=== PATIENT | female | born 1995 | race African-American/Black ===

== ENCOUNTER → 2019-11-29 | Emergency (ER) | payer OTHER ==
[~2019-11-29] MED LIST: CARA1TAB6 PO; CYCLOBENZAPRINE 10MG TABLET ONE; KETOROLAC 30 MG/ML 1ML VIAL ONE; KETOROLAC TROMETHAMINE 10 MG TAB ONE; LEXA1TAB PO; METOCLOPRAMIDE INJ 10MG/2ML VIAL (J2765 PER 1) ONE; OMEP40CA97 PO; VIST25CA PO; diphenhydrAMINE 50MG/ML VIAL (J1200) ONE
== END | disposition home or self-care (01) ==
LOC: M ED 22:45
DX: G43.909 Migraine, unspecified, not intractable, without status migrainosus (principal); Z87.891 Personal history of nicotine dependence; Z79.899 Other long term (current) drug therapy
CPT/HCPCS: 96361; 96374; 96375; 99283; J1200; J1885; J2765

== ENCOUNTER 2019-11-30 11:00 | Emergency (ER) | payer OTHER ==
[2019-11-30] MEDS ORDERED: diphenhydrAMINE 50MG/ML VIAL (J1200) ONE (12:54)
[2019-11-30] MEDS ORDERED: diphenhydrAMINE 50MG/ML VIAL (J1200) As Ordered ONE (12:54)
[2019-11-30] MEDS ORDERED: ACETAMINOPHEN 500 MG TAB As Ordered ONE (12:55)
[2019-11-30] MEDS ORDERED: ACETAMINOPHEN 500 MG TAB ONE (12:55)
[2019-11-30] MEDS ORDERED: KETOROLAC 30 MG/ML 1ML VIAL As Ordered ONE (13:34)
[2019-11-30] MEDS ORDERED: METOCLOPRAMIDE INJ 10MG/2ML VIAL (J2765 PER 1) As Ordered ONE (13:34)
[2019-11-30] MEDS ORDERED: METOCLOPRAMIDE INJ 10MG/2ML VIAL (J2765 PER 1) ONE (13:34)
[2019-11-30] MEDS ORDERED: KETOROLAC 30 MG/ML 1ML VIAL ONE (13:34)
[2019-11-30] MEDS ORDERED: methylPREDNISolone 125MG 2ML VIAL As Ordered ONE (15:01)
[2019-11-30] MEDS ORDERED: methylPREDNISolone 125MG 2ML VIAL ONE (15:01)
[2020-01-15 01:57] LABS: BASO % 0.5 % (0.0-1.0); EOS # 0.7 10^3/uL (0.0-0.5); EOS % 8.3 % (0.0-3.0); HEMATOCRIT 48.2 % (36.0-47.0); HEMOGLOBIN 16.5 g/dl (12.0-15.5); LYMPH # 3.2 10^3/uL (1.5-5.0); LYMPH % 39.2 % (24.0-44.0); MEAN CORPUSCULAR HGB CONC 34.2 g/dl (32.0-36.5); MEAN CORPUSCULAR VOLUME 93.4 fl (80.0-96.0); MONO # 0.3 10^3/uL (0.0-0.8); MONO % 3.9 % (0.0-5.0); NEUTROPHILS # 3.8 10^3/uL (1.5-8.5); NEUTROPHILS % 47.7 % (36.0-66.0); PLATELET COUNT, AUTOMATED 411 10^3/uL (150-450); RED BLOOD COUNT 5.16 10^6/uL (4.00-5.40)
[2020-01-15 02:09] LABS: INR 0.84; PROTHROMBIN TIME 11.7 SECONDS (12.5-14.3)
[2020-01-15 02:10] LABS: PARTIAL THROMBOPLASTIN TIME 27.6 SECONDS (24.2-38.5)
== END 2019-11-30 17:10 | disposition home or self-care (01) ==
LOC: M ED 11:00
DX: G44.89 Other headache syndrome (principal); F41.9 Anxiety disorder, unspecified; Z79.899 Other long term (current) drug therapy
CPT/HCPCS: 70450; 72125; 80048; 80076; 81001; 84703; 85025; 85610; 85730; 96374; 96375; 99283; J1200; J1885; J2765; J2930

== ENCOUNTER → 2020-01-22 | Outpatient (CLI) | payer OTHER ==
[~2020-01-22] MED LIST changes: -CYCLOBENZAPRINE 10MG TABLET ONE; -KETOROLAC 30 MG/ML 1ML VIAL ONE; -KETOROLAC TROMETHAMINE 10 MG TAB ONE; -METOCLOPRAMIDE INJ 10MG/2ML VIAL (J2765 PER 1) ONE; -diphenhydrAMINE 50MG/ML VIAL (J1200) ONE
--- NOTE | 2020-01-22 14:28 | REPVR ---
PROCEDURE INFORMATION: Exam: US Abdomen, Limited; Right Upper Quadrant Exam date and time: 01/22/2020 2:21 PM Age: 24 years old Clinical indication: Abdominal pain; Additional info: Ruq abd pain, right upper quadrant pain TECHNIQUE: Imaging protocol: US abdomen. Real time ultrasound with image documentation. Limited exam focused on the right upper quadrant. COMPARISON: No relevant prior studies available. FINDINGS: Liver: The liver is homogeneous in echotexture. No demonstrated mass or intrahepatic biliary ductal dilatation. Gallbladder: The gallbladder is without demonstrated stones, sludge or wall thickening, and there is no pericholecystic fluid. Sonographic Eng sign is reportedly negative. Common bile duct: The common bile duct is normal in size for a patient of this age at 2.9 mm. Pancreas: Visualized portions of the pancreas, not fully including the tail, are without demonstrated abnormality. Right kidney: The right kidney measures 11.0 x 4.3 x 4.3 cm. Normal appearing echotexture. There is no hydronephrosis or demonstrated renal stone, cyst or mass. Inferior vena cava: The IVC is present. IMPRESSION: No significant abnormality. Electronically signed by: Bert Starr On 01/22/2020 14:28:39 PM
[2020-01-22 15:29] LABS: BASO # 0.1 10^3/uL (0.0-0.2); BASO % 0.8 % (0.0-1.0); EOS # 0.5 10^3/uL (0.0-0.5); EOS % 5.7 % (0.0-3.0); HEMATOCRIT 42.3 % (36.0-47.0); HEMOGLOBIN 13.9 g/dl (12.0-15.5); LYMPH # 3.3 10^3/uL (1.5-5.0); LYMPH % 39.1 % (24.0-44.0); MEAN CORPUSCULAR HEMOGLOBIN 31.1 pg (27.0-33.0); MEAN CORPUSCULAR HGB CONC 32.9 g/dl (32.0-36.5); MEAN CORPUSCULAR VOLUME 94.6 fl (80.0-96.0); MONO # 0.4 10^3/uL (0.0-0.8); MONO % 5.1 % (0.0-5.0); NEUTROPHILS # 4.1 10^3/uL (1.5-8.5); NEUTROPHILS % 49.1 % (36.0-66.0); PLATELET COUNT, AUTOMATED 401 10^3/uL (150-450); RED BLOOD COUNT 4.47 10^6/uL (4.00-5.40); WHITE BLOOD COUNT 8.4 10^3/uL (4.0-10.0)
[2020-01-22 16:02] LABS: ALT/SGPT 19 U/L (12-78); BILIRUBIN,TOTAL 1.6 MG/DL (0.2-1.0); BLOOD UREA NITROGEN 13 MG/DL (7-18); CALCIUM LEVEL 9.1 MG/DL (8.5-10.1); CARBON DIOXIDE LEVEL 27 MEQ/L (21-32); CHLORIDE LEVEL 105 MEQ/L (98-107); CREATININE FOR GFR 0.66 MG/DL (0.55-1.30); GLOMERULAR FILTRATION RATE > 60.0 (>60); GLUCOSE, FASTING 77 MG/DL (70-100); LIPASE 118 U/L (73-393); POTASSIUM SERUM 4.9 MEQ/L (3.5-5.1); SODIUM LEVEL 136 MEQ/L (136-145); TOTAL PROTEIN 7.3 GM/DL (6.4-8.2)
== END ==
LOC: M LAB 13:21
PROVIDERS: ATTEND Physician Assistant
DX: R10.11 Right upper quadrant pain (principal)

== ENCOUNTER → 2020-01-31 | Outpatient (REF) | payer OTHER | LOC: M LAB REF 12:18 | PROVIDERS: ATTEND Physician Assistant | DX: R19.7 Diarrhea, unspecified (principal) ==

== ENCOUNTER 2020-02-10 10:42 | Emergency (ER) | payer OTHER ==
[~2020-02-10] VITALS: Ht 149.9 cm; Wt 80.4 kg
[2020-02-10] MEDS ORDERED: VIST25CA PO (10:53)
[2020-02-10] MEDS ORDERED: LEXA1TAB PO (10:53)
[2020-02-10] MEDS ORDERED: NS 500 ML IV ONE (11:30)
[2020-02-10] MEDS ORDERED: METOCLOPRAMIDE INJ 10MG/2ML VIAL (J2765 PER 1) IV ONE (11:30)
[2020-02-10] MEDS ORDERED: GI COCKTAIL 50ML BTL(HYOSCYAMINE/MAALOX/LIDOCAINE VISCOUS)(1:3:1) PO ONE (11:30)
[2020-02-10] MEDS ORDERED: ISOVUE-370 76% 100ML VIAL As Ordered ONE (12:28)
--- NOTE | 2020-02-10 12:28 | REP ---
INDICATION: RUQ abd pain COMPARISON: None. TECHNIQUE: Real time bates scale ultrasound examination using curved array transducer. FINDINGS: Liver is normal in contour, size, and echogenicity without focal hepatic lesions identified. Pancreas is incompletely evaluated due to interposed bowel gas. The gallbladder is normal and without gallstones, wall thickening, or pericholecystic fluid. No biliary ductal dilatation is appreciated and the common bile duct measures 4.0 mm diameter. Right kidney is normal in reniform shape without hydronephrosis and measures 10.7 x 5.4 x 4.3 cm. No ascites in the visualized right upper quadrant. IMPRESSION: Normal limited right upper quadrant ultrasound <Electronically signed by Lei Little > 02/10/20 [id number]
[2020-02-10 12:42] LABS: ALBUMIN 3.6 GM/DL (3.2-5.2); BILIRUBIN,DIRECT 0.2 MG/DL (0.0-0.2); TOTAL PROTEIN 7.5 GM/DL (6.4-8.2)
--- NOTE | 2020-02-10 12:51 | REP ---
INDICATION: CHEST TIGHTNESS COMPARISON: None. TECHNIQUE: Portable AP view of the chest FINDINGS: The mediastinum and cardiac silhouette are stable and within normal limits for portable technique. The lung oliva are clear without acute consolidation, effusion, or pneumothorax. Skeletal structures are intact. IMPRESSION: No acute cardiopulmonary process appreciated. <Electronically signed by Lei Little > 02/10/20 [id number]
--- NOTE | 2020-02-10 13:07 | REP ---
INDICATION: chest tightness, RUQ abd pain COMPARISON: None. TECHNIQUE: Axial contrast enhanced images from the thoracic inlet to the upper abdomen using pulmonary embolus technique with multiplanar re-formations. 100 ml Isovue 370 intravenous contrast material administered without complication followed by CT of the abdomen and pelvis. This CT examination was performed using the following dose reduction techniques: Automated exposure control, adjustment of mA and/or kv according to the patient's size, and use of iterative reconstruction technique. FINDINGS: Satisfactory enhancement of the pulmonary vasculature is achieved and no filling defects are identified to suggest pulmonary embolus. Thoracic aorta is normal and without aneurysm or dissection. Heart and pericardium are normal. The bilateral lung oliva are well aerated and clear without consolidation pleural effusion or pneumothorax. Tracheobronchial tree is patent. No nodule or mass lesion is identified. No adenopathy noted. Surrounding musculoskeletal structures intact IMPRESSION: Normal pulmonary vasculature and normal thoracic aorta. No acute mediastinal or pleuroparenchymal process. <Electronically signed by Lei Little > 02/10/20 [id number]
--- NOTE | 2020-02-10 13:10 | REP ---
INDICATION: epigastric, RUQ abd pain. COMPARISON: None TECHNIQUE: Axial contrast-enhanced images from the lung bases to the pubic symphysis using 100 cc Isovue 370 intravenous contrast material with coronal and sagittal reformations. This CT examination was performed using the following dose reduction techniques: Automated exposure control, adjustment of mA and/or kv according to the patient's size, and the use of iterative reconstruction technique. FINDINGS: Liver, spleen, pancreas, gallbladder, bilateral adrenal glands and kidneys are normal. The enteric system including stomach, small, and large bowel appears normal. No evidence for obstruction or acute inflammatory process. Normal terminal ileum and appendix are identified in the right lower quadrant. Pelvis demonstrates normal bladder and age-appropriate prostate/seminal vesicles. No ascites. No free air. No intraperitoneal or retroperitoneal adenopathy. Abdominal aorta and vasculature appear normal. Musculoskeletal structures are intact and without acute osseous abnormality. IMPRESSION: No acute abdominopelvic pathology appreciated. Normal appearance of the aorta and vasculature. <Electronically signed by Lei Little > 02/10/20 [id number]
[2020-02-10] MEDS ORDERED: MAALOX 30 ML SUSP *UDC PO ONE (13:15)
[2020-02-10] MEDS ORDERED: HYOSCYAMINE SULFATE 0.125 MG SUBL TABLET PO ONE (13:15)
[2020-02-10 14:13] LABS: BASO # 0.1 10^3/uL (0.0-0.2); BASO % 0.7 % (0.0-1.0); EOS # 0.6 10^3/uL (0.0-0.5); EOS % 7.3 % (0.0-3.0); HEMATOCRIT 41.4 % (36.0-47.0); HEMOGLOBIN 13.9 g/dl (12.0-15.5); LYMPH % 37.2 % (24.0-44.0); MEAN CORPUSCULAR HEMOGLOBIN 31.4 pg (27.0-33.0); MEAN CORPUSCULAR HGB CONC 33.6 g/dl (32.0-36.5); MEAN CORPUSCULAR VOLUME 93.5 fl (80.0-96.0); MONO # 0.4 10^3/uL (0.0-0.8); MONO % 5.5 % (0.0-5.0); NEUTROPHILS # 3.9 10^3/uL (1.5-8.5); NEUTROPHILS % 48.9 % (36.0-66.0); PLATELET COUNT, AUTOMATED 413 10^3/uL (150-450); RED BLOOD COUNT 4.43 10^6/uL (4.00-5.40)
[2020-02-10] MEDS ORDERED: PANTOPRAZOLE 40MG VIAL (C9113 PER 1) IV ONE (14:15)
[2020-02-10] MEDS ORDERED: CARA1TAB6 PO (14:20)
[2020-02-10] MEDS ORDERED: OMEP40CA97 PO (14:20)
[2020-02-10 14:32] VITALS: BP 122/69
--- NOTE | 2020-02-10 16:16 | ECGEPIP ---
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
== END 2020-02-10 15:02 | disposition home or self-care (01) ==
LOC: M ED 10:42
DX: K29.90 Gastroduodenitis, unspecified, without bleeding (principal); K29.70 Gastritis, unspecified, without bleeding; F41.9 Anxiety disorder, unspecified; Z79.899 Other long term (current) drug therapy
CPT/HCPCS: 71045; 71275; 74177; 76705; 80047; 80076; 81001; 83605; 83690; 84484; 84702; 85025; 93005; 93041; 96361; 96374; 96375; 99284; C9113; J2765; Q9967

== ENCOUNTER 2020-04-27 09:49 | Emergency (ER) | payer OTHER ==
[~2020-04-27] VITALS: Ht 167.6 cm; Wt 68.2 kg
[2020-04-27 10:35] LABS: BASO # 0.1 10^3/uL (0.0-0.2); BASO % 0.4 % (0.0-1.0); EOS # 0.5 10^3/uL (0.0-0.5); HEMATOCRIT 45.2 % (36.0-47.0); HEMOGLOBIN 15.4 g/dl (12.0-15.5); LYMPH % 11.4 % (24.0-44.0); MEAN CORPUSCULAR HEMOGLOBIN 31.4 pg (27.0-33.0); MEAN CORPUSCULAR HGB CONC 34.1 g/dl (32.0-36.5); MEAN CORPUSCULAR VOLUME 92.1 fl (80.0-96.0); MONO # 0.9 10^3/uL (0.0-0.8); MONO % 5.4 % (0.0-5.0); NEUTROPHILS % 79.4 % (36.0-66.0); PLATELET COUNT, AUTOMATED 421 10^3/uL (150-450); RED BLOOD COUNT 4.91 10^6/uL (4.00-5.40); WHITE BLOOD COUNT 17.6 10^3/uL (4.0-10.0)
[2020-04-27 11:07] LABS: ALBUMIN 4.3 GM/DL (3.2-5.2); ALT/SGPT 21 U/L (12-78); BILIRUBIN,DIRECT 0.3 MG/DL (0.0-0.2); BILIRUBIN,TOTAL 1.6 MG/DL (0.2-1.0); BLOOD UREA NITROGEN 20 MG/DL (7-18); CALCIUM LEVEL 9.4 MG/DL (8.5-10.1); CARBON DIOXIDE LEVEL 23 MEQ/L (21-32); CHLORIDE LEVEL 108 MEQ/L (98-107); CREATININE FOR GFR 0.71 MG/DL (0.55-1.30); GLOMERULAR FILTRATION RATE > 60.0 (>60); GLUCOSE, FASTING 86 MG/DL (70-100); HCG, SERUM QUALITATIVE NEGATIVE (NEGATIVE); LIPASE 123 U/L (73-393); POTASSIUM SERUM 4.3 MEQ/L (3.5-5.1); SODIUM LEVEL 137 MEQ/L (136-145); TOTAL PROTEIN 7.7 GM/DL (6.4-8.2)
[2020-04-27] MEDS ORDERED: NS 1,000 ML IV ONE (11:15)
[2020-04-27] MEDS ORDERED: KETOROLAC 30 MG/ML 1ML VIAL IV ONE (11:15)
[2020-04-27] MEDS ORDERED: ONDANSETRON 4MG/2ML VIAL IV ONE (11:15)
--- NOTE | 2020-04-27 11:34 | REP ---
INDICATION: Abdominal Pain COMPARISON: None. TECHNIQUE: Upright view of the chest with supine and upright views of the abdomen and pelvis. FINDINGS: Frontal upright view of the chest demonstrates no acute cardiopulmonary process or free air below the diaphragm to suspect pneumoperitoneum. Supine and upright views of the abdomen and pelvis demonstrate nonspecific bowel gas pattern without obstruction or perforation. No organomegaly. No abnormal calcifications. Skeletal structures normal for age. IMPRESSION: Nonspecific bowel gas pattern. <Electronically signed by Lei Little > 04/27/20 [id number]
--- NOTE | 2020-04-27 11:34 | REP ---
INDICATION: RUQ pain, n/v/d COMPARISON: 02/10/2020 TECHNIQUE: Real time bates scale ultrasound examination using curved array transducer. FINDINGS: Liver and pancreas are normal in contour, size, and echogenicity without focal hepatic or pancreatic lesions identified. The gallbladder is normal and without gallstones, wall thickening, or pericholecystic fluid. No biliary ductal dilatation is appreciated and the common bile duct measures 4.2 mm diameter. Right kidney is normal in reniform shape without hydronephrosis and measures 11.0 x 5.6 x 3.3 cm. No ascites in the visualized right upper quadrant. IMPRESSION: Normal right upper quadrant and gallbladder ultrasound. <Electronically signed by Lei Little > 04/27/20 1302
[2020-04-27] MEDS ORDERED: ISOVUE-370 76% 100ML VIAL As Ordered ONE (12:22)
[2020-04-27 12:24] LABS: CK-MB VALUE MASS < 1.0 NG/ML (<3.6); CPK CREATINE PHOSPHOKINASE 183 U/L (26-192); MB/CK RELATIVE INDEX 0.55 (< OR =4); TROPONIN I < 0.02 NG/ML (< 0.10)
--- NOTE | 2020-04-27 13:16 | REP ---
INDICATION: n/v/d, RUQ pain. COMPARISON: 02/10/2020 TECHNIQUE: Axial contrast-enhanced images from the lung bases to the pubic symphysis using 100 cc Isovue 370 intravenous contrast material. Coronal and sagittal reformations obtained. This CT examination was performed using the following dose reduction techniques: Automated exposure control, adjustment of mA and/or kv according to the patient's size, and the use of iterative reconstruction technique. FINDINGS: Liver, spleen, pancreas, gallbladder, bilateral adrenal glands and kidneys are normal. The enteric system including stomach, small, and large bowel appears normal. No evidence for obstruction or acute inflammatory process. Normal terminal ileum and appendix are identified in the right lower quadrant. Pelvis demonstrates normal bladder and age-appropriate uterus/left adnexa with involuting rim enhancing right ovarian cyst and small amount of free fluid in the pelvis raising the possibility of ruptured follicle. No significant ascites. No free air. No intraperitoneal or retroperitoneal adenopathy. Abdominal aorta and vasculature appear normal. Musculoskeletal structures are intact and without acute osseous abnormality. IMPRESSION: 1. No acute abdominopelvic pathology appreciated. 2. Involuting rim enhancing right ovarian cyst and small amount of free fluid in the pelvis suggesting ruptured follicle and related to menstrual cycle. <Electronically signed by Lei Little > 04/27/20 1315
[2020-04-27 13:58] LABS: AMPHETAMINES LEVEL URINE NEGATIVE (NEGATIVE); BARBITURATES URINE NEGATIVE (NEGATIVE); BENZODIAZEPINES URINE NEGATIVE (NEGATIVE); CANNABINOIDS URINE NEGATIVE (NEGATIVE); COCAINE METABOLITE URINE NEGATIVE (NEGATIVE); METHADONE URINE NEGATIVE (NEGATIVE); OPIATES URINE NEGATIVE (NEGATIVE); PHENCYCLIDINE URINE NEGATIVE (NEGATIVE)
[2020-04-27] MEDS ORDERED: HEPARIN DRIP 25,000 UNITS in IV 1 EA IV SCH (14:07)
[2020-04-27 14:12] VITALS: BP 126/82
[2020-04-27] MEDS ORDERED: HEPARIN SOD (PORCINE) 5000UNITS/ML 1ML VIAL/SYRINGE IV ONE (14:15)
[2020-04-27] MEDS ORDERED: CARA1TAB6 PO (14:22)
[2020-04-27] MEDS ORDERED: OMEP40CA97 PO (14:22)
--- NOTE | 2020-04-27 18:14 | ECGEPIP ---
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
== END 2020-04-27 14:52 | disposition home or self-care (01) ==
LOC: M ED 09:49
DX: K29.70 Gastritis, unspecified, without bleeding (principal); N83.201 Unspecified ovarian cyst, right side; E80.6 Other disorders of bilirubin metabolism; D72.829 Elevated white blood cell count, unspecified; R10.9 Unspecified abdominal pain; R11.2 Nausea with vomiting, unspecified; R19.7 Diarrhea, unspecified; F41.9 Anxiety disorder, unspecified; F32.9 Major depressive disorder, single episode, unspecified; F43.10 Post-traumatic stress disorder, unspecified; Z87.891 Personal history of nicotine dependence; Z79.899 Other long term (current) drug therapy
CPT/HCPCS: 74021; 74177; 76705; 80048; 80076; 80307; 81001; 82550; 82553; 83690; 84484; 84703; 85025; 93005; 96361; 96374; 96375; 99284; J1885; J2405; Q9967

== ENCOUNTER 2022-02-11 19:41 | Inpatient (IN) | payer OTHER ==
[~2022-02-11] VITALS: Ht 149.9 cm; Wt 83.0 kg
[~2022-02-11 19:41] MED LIST changes: +OMEP40CA4 PO; -OMEP40CA97 PO
[2022-02-11] MEDS ORDERED: CHARCOAL ACTIVATED LIQUID 25 GM/120 ML BTL PO ONE (19:55)
[2022-02-11] MEDS: NS 1,000 ML IV SCH (19:55)
[2022-02-11 20:17] LABS: BASO # 0.1 10^3/uL (0.0-0.2); BASO % 0.7 % (0.0-1.0); EOS # 0.5 10^3/uL (0.0-0.5); HEMATOCRIT 44.1 % (36.0-47.0); HEMOGLOBIN 14.9 g/dl (12.0-15.5); LYMPH # 4.3 10^3/uL (1.5-5.0); LYMPH % 41.1 % (24.0-44.0); MEAN CORPUSCULAR HEMOGLOBIN 30.7 pg (27.0-33.0); MEAN CORPUSCULAR HGB CONC 33.8 g/dl (32.0-36.5); MEAN CORPUSCULAR VOLUME 90.7 fl (80.0-96.0); MONO # 0.6 10^3/uL (0.0-0.8); NEUTROPHILS # 4.9 10^3/uL (1.5-8.5); NEUTROPHILS % 46.9 % (36.0-66.0); PLATELET COUNT, AUTOMATED 508 10^3/uL (150-450); RED BLOOD COUNT 4.86 10^6/uL (4.00-5.40); WHITE BLOOD COUNT 10.4 10^3/uL (4.0-10.0)
[2022-02-11 20:43] LABS: HCG, SERUM QUALITATIVE NEGATIVE (NEGATIVE)
[2022-02-11 21:01] LABS: ACETAMINOPHEN LEVEL < 2.0 UG/ML (10.0-30.0); ALBUMIN 4.6 GM/DL (3.2-5.2); ALT/SGPT 18 U/L (12-78); BILIRUBIN,DIRECT 0.2 MG/DL (0.0-0.2); BILIRUBIN,TOTAL 1.1 MG/DL (0.2-1.0); BLOOD UREA NITROGEN 12 MG/DL (7-18); CALCIUM LEVEL 10.4 MG/DL (8.5-10.1); CARBON DIOXIDE LEVEL 26 MEQ/L (21-32); CHLORIDE LEVEL 105 MEQ/L (98-107); CREATININE FOR GFR 0.87 MG/DL (0.55-1.30); ETHYL ALCOHOL (ETHANOL) < 0.003 % (0.000-0.010); GLOMERULAR FILTRATION RATE > 60.0 (>60); GLUCOSE, FASTING 106 MG/DL (70-100); MAGNESIUM LEVEL 2.3 MG/DL (1.8-2.4); POTASSIUM SERUM 3.8 MEQ/L (3.5-5.1); SALICYLATE LEVEL < 1.7 MG/DL (5.0-30.0); SODIUM LEVEL 136 MEQ/L (136-145); TOTAL PROTEIN 8.4 GM/DL (6.4-8.2)
[2022-02-11 22:11] LABS: RSV AMPLIFICATION NEGATIVE (NEGATIVE)
[2022-02-12] MEDS ORDERED: LEXA1TAB PO (00:40)
[2022-02-12] MEDS ORDERED: HOME MED LIST COMPLETE! XX SCH (00:40)
[2022-02-12] MEDS: NS 1,000 ML IV SCH ×2 (02:35→09:14)
[2022-02-12 06:23] LABS: HEMATOCRIT 36.2 % (36.0-47.0); MEAN CORPUSCULAR HEMOGLOBIN 31.9 pg (27.0-33.0); MEAN CORPUSCULAR HGB CONC 35.1 g/dl (32.0-36.5); RED BLOOD COUNT 3.98 10^6/uL (4.00-5.40); WHITE BLOOD COUNT 8.6 10^3/uL (4.0-10.0)
[2022-02-12 07:02] LABS: HEMOGLOBIN 12.7 g/dl (12.0-15.5); PLATELET COUNT, AUTOMATED 390 10^3/uL (150-450)
[2022-02-12 07:12] LABS: ALBUMIN 3.2 GM/DL (3.2-5.2); ALT/SGPT 15 U/L (12-78); BILIRUBIN,TOTAL 1.1 MG/DL (0.2-1.0); BLOOD UREA NITROGEN 14 MG/DL (7-18); CALCIUM LEVEL 8.5 MG/DL (8.5-10.1); CARBON DIOXIDE LEVEL 24 MEQ/L (21-32); CHLORIDE LEVEL 110 MEQ/L (98-107); CREATININE FOR GFR 0.64 MG/DL (0.55-1.30); GLOMERULAR FILTRATION RATE > 60.0 (>60); GLUCOSE, FASTING 95 MG/DL (70-100); POTASSIUM SERUM 4.1 MEQ/L (3.5-5.1); SODIUM LEVEL 139 MEQ/L (136-145)
[2022-02-12] MEDS ORDERED: ENOXAPARIN 40MG/0.4ML SYRINGE (J1650 PER 10MG) SC SCH (09:00)
[2022-02-12 15:10] VITALS: BP 126/78
[2022-02-12 15:56] LABS: BLOOD UREA NITROGEN 11 MG/DL (7-18); CHLORIDE LEVEL 110 MEQ/L (98-107); CREATININE FOR GFR 0.73 MG/DL (0.55-1.30); GLOMERULAR FILTRATION RATE > 60.0 (>60); GLUCOSE, FASTING 85 MG/DL (70-100); POTASSIUM SERUM 4.4 MEQ/L (3.5-5.1); SODIUM LEVEL 140 MEQ/L (136-145)
[2022-02-12 15:57] LABS: ALBUMIN 3.8 GM/DL (3.2-5.2); ALT/SGPT 18 U/L (12-78); BILIRUBIN,TOTAL 1.6 MG/DL (0.2-1.0); CALCIUM LEVEL 8.8 MG/DL (8.5-10.1); CARBON DIOXIDE LEVEL 25 MEQ/L (21-32); MAGNESIUM LEVEL 2.1 MG/DL (1.8-2.4); TOTAL PROTEIN 6.9 GM/DL (6.4-8.2)
[2022-02-12] MEDS ORDERED: ACETAMINOPHEN TAB 650MG DOSE (2X325MG) PO ONE (17:05)
[2022-02-12 21:12] VITALS: BP 129/77
== END 2022-02-12 21:00 | DRG 918 ==
LOC: M ED 19:41 → M ED INP 22:13 → M MSPAV 02-12 15:07
PROVIDERS: ADMIT Family Medicine; ATTEND Internal Medicine
DX: T43.222A Poisoning by selective serotonin reuptake inhibitors, intentional self-harm, initial encounter (principal); F33.2 Major depressive disorder, recurrent severe without psychotic features; F41.9 Anxiety disorder, unspecified; K29.70 Gastritis, unspecified, without bleeding; G43.909 Migraine, unspecified, not intractable, without status migrainosus; F17.290 Nicotine dependence, other tobacco product, uncomplicated; Z79.899 Other long term (current) drug therapy; F43.23 Adjustment disorder with mixed anxiety and depressed mood

== ENCOUNTER 2022-02-12 17:39 | Inpatient (IN) | payer OTHER ==
[~2022-02-12] VITALS: Ht 149.9 cm; Wt 83.5 kg
[2022-02-12] MEDS ORDERED: LORazepam 0.5 MG TAB PO PRN (18:10)
[2022-02-12] MEDS ORDERED: MAALOX 30 ML SUSP *UDC PO PRN (18:10)
[2022-02-12] MEDS ORDERED: MOM 30ML SUSPENSION UDC PO PRN (18:10)
[2022-02-12] MEDS ORDERED: ACETAMINOPHEN TAB 650MG DOSE (2X325MG) PO PRN (18:10)
[2022-02-12] MEDS ORDERED: NICOTINE 21MG/24HR 1 EA TRANSDERMAL TD PRN (18:10)
[2022-02-12 21:12] VITALS: BP 116/73
[2022-02-12] MEDS: traZODone 50 MG TAB PO PRN (23:44)
[2022-02-13 06:26] VITALS: BP 132/64
[2022-02-13] MEDS: ESCITALOPRAM OXALATE 10 MG TAB (LEXAPRO) PO SCH (09:44)
[2022-02-13] MEDS ORDERED: HOME MED LIST COMPLETE! XX SCH (12:35)
[2022-02-13] MEDS: METAMUCIL (PSYLLIUM) PACKET PO PRN (13:26)
[2022-02-13 16:33] VITALS: BP 128/67
[2022-02-13] MEDS: PRAZOSIN 1 MG CAP PO SCH (20:46)
[2022-02-13] MEDS ORDERED: DIVALPROEX 500MG *ER* TAB PO SCH (21:00)
[2022-02-13] MEDS: traZODone 50 MG TAB PO PRN (22:51)
[2022-02-14 06:27] VITALS: BP 106/57
[2022-02-14] MEDS: ESCITALOPRAM OXALATE 10 MG TAB (LEXAPRO) PO SCH (08:30)
[2022-02-14] MEDS: VENLAFAXINE **XR** 75MG CAPSULE PO SCH (09:00)
[2022-02-14 16:14] VITALS: BP 107/68
[2022-02-14] MEDS: METAMUCIL (PSYLLIUM) PACKET PO PRN (17:37)
[2022-02-14] MEDS: PRAZOSIN 1 MG CAP PO SCH (20:10)
[2022-02-14] MEDS: DOCUSATE SODIUM 100MG CAPSULE PO SCH (20:10)
[2022-02-14] MEDS: traZODone 50 MG TAB PO PRN (20:10)
[2022-02-14] MEDS: lamoTRIgine 25MG TAB PO SCH (20:10)
[2022-02-15 06:30] VITALS: BP 123/60
[2022-02-15] MEDS: ESCITALOPRAM OXALATE 10 MG TAB (LEXAPRO) PO SCH (09:32)
[2022-02-15] MEDS: DOCUSATE SODIUM 100MG CAPSULE PO SCH ×2 (09:32→20:22)
[2022-02-15] MEDS: VENLAFAXINE **XR** 75MG CAPSULE PO SCH (09:32)
[2022-02-15 16:38] VITALS: BP 111/72
[2022-02-15] MEDS: lamoTRIgine 25MG TAB PO SCH (20:22)
[2022-02-15] MEDS: PRAZOSIN 1 MG CAP PO SCH (20:22)
[2022-02-15] MEDS: traZODone 50 MG TAB PO PRN (21:34)
[2022-02-16 06:12] VITALS: BP 111/66
[2022-02-16] MEDS: DOCUSATE SODIUM 100MG CAPSULE PO SCH ×2 (09:30→20:06)
[2022-02-16] MEDS: ESCITALOPRAM OXALATE 10 MG TAB (LEXAPRO) PO SCH (09:30)
[2022-02-16] MEDS: VENLAFAXINE **XR** 75MG CAPSULE PO SCH (09:30)
[2022-02-16 17:25] VITALS: BP 132/77
[2022-02-16 20:06] VITALS: BP 131/71
[2022-02-16] MEDS: lamoTRIgine 25MG TAB PO SCH (20:06)
[2022-02-16] MEDS: traZODone 50 MG TAB PO PRN (20:06)
[2022-02-16] MEDS: PRAZOSIN 1 MG CAP PO SCH (20:06)
[2022-02-16] MEDS: METAMUCIL (PSYLLIUM) PACKET PO PRN (20:07)
[2022-02-17 06:15] VITALS: BP 144/84
[2022-02-17] MEDS: DOCUSATE SODIUM 100MG CAPSULE PO SCH (08:39)
[2022-02-17] MEDS: VENLAFAXINE **XR** 75MG CAPSULE PO SCH (08:39)
[2022-02-17] MEDS: METAMUCIL (PSYLLIUM) PACKET PO PRN (08:42)
[2022-02-17] MEDS ORDERED: ESCITALOPRAM OXALATE 10 MG TAB (LEXAPRO) PO SCH (09:00)
[2022-02-17] MEDS ORDERED: NICO21PAT TD ×2 (09:49→11:44)
[2022-02-17] MEDS ORDERED: TRAZ-252 PO ×2 (09:49→11:45)
[2022-02-17] MEDS ORDERED: VENL75CA47 PO ×2 (09:49→11:45)
[2022-02-17] MEDS ORDERED: MINI1CAP PO ×2 (09:49→11:44)
[2022-02-17] MEDS ORDERED: LAMI25TA PO ×2 (09:49→11:44)
== END 2022-02-17 11:19 | disposition home or self-care (01) | DRG 885 ==
LOC: M PSY 21:08
PROVIDERS: ADMIT Psychiatry & Neurology Psychiatry; ATTEND Student in an Organized Health Care Education/Training Program
DX: F31.30 Bipolar disorder, current episode depressed, mild or moderate severity, unspecified (principal); F43.10 Post-traumatic stress disorder, unspecified; K58.9 Irritable bowel syndrome, unspecified; Z91.51 Personal history of suicidal behavior; Z56.0 Unemployment, unspecified; Z79.899 Other long term (current) drug therapy; Z81.8 Family history of other mental and behavioral disorders; F17.290 Nicotine dependence, other tobacco product, uncomplicated